=== PATIENT | female | born 1965 ===

== ENCOUNTER 2022-09-29 05:59 | Day surgery (SDC) | payer OTHER ==
[2022-09-24 14:57] VITALS: BMI 37.2
[2022-09-29] MEDS ORDERED: PROPOFOL 40 ML ONE (07:32)
[2022-09-29] MEDS ORDERED: Lidocaine 1% PF 5 ML VIAL ONE (07:32)
[2022-09-29] MEDS ORDERED: PROPOFOL 20 ML ONE ×4 (08:12→09:22)
== END 2022-09-29 09:05 | disposition home or self-care (01) ==
LOC: CSHSDC 05:59
PROVIDERS: ATTEND Internal Medicine Gastroenterology
PROC: 0DB68ZX Excision of Stomach, Via Natural or Artificial Opening Endoscopic, Diagnostic (ICD-10-PCS; principal; 2022-09-29)
PROC: 0DJD8ZZ Inspection of Lower Intestinal Tract, Via Natural or Artificial Opening Endoscopic (ICD-10-PCS; principal; 2022-09-29)
DX: D50.0 Iron deficiency anemia secondary to blood loss (chronic) (principal); K57.30 Diverticulosis of large intestine without perforation or abscess without bleeding; K64.8 Other hemorrhoids; K44.9 Diaphragmatic hernia without obstruction or gangrene; K29.80 Duodenitis without bleeding; K26.9 Duodenal ulcer, unspecified as acute or chronic, without hemorrhage or perforation; K29.50 Unspecified chronic gastritis without bleeding; K21.9 Gastro-esophageal reflux disease without esophagitis; E66.9 Obesity, unspecified; Z68.37 Body mass index [BMI] 37.0-37.9, adult; Z86.711 Personal history of pulmonary embolism; Z79.01 Long term (current) use of anticoagulants; Z79.899 Other long term (current) drug therapy
CPT/HCPCS: 88305; J2704